=== PATIENT | male | born 1985 | race Asian ===

== ENCOUNTER → 2018-11-18 14:30 | Outpatient (CLI) | payer OTHER, SELFPAY ==
--- NOTE | 2018-11-18 | DI.ECHO.S_ITS ---
[facility]+ [facility] +---------+ : : [address] : [address] : : : : [id number] : : : : Phone: [phone]---------+ Echocardiogram Report + + :Name: JOSUÉ WHITTINGTON Study Date: 11/18/2018 Height: 66 in : :[facility] Exam Location: [facility] Weight: 200 lb : : Gender: Male BSA: 2.0 m2 : :: 1985 Age: 33 yrs BP: 145/100 mmHg: :Reason For Study: Hypertension : : Performed By: Jackelyn Page : :Referring: KIMBERLY GARZA : + + Interpretation Summary Left ventricular systolic function is normal without focal wall motion abnormalities with the ejection fraction visually estimated to be 60-65%. Left ventricular wall thickness is at the upper limits of normal but diastolic parameters suggest probable normal left ventricular diastolic function and normal filling pressures. The right ventricle is normal in size and function. Pulmonary artery pressures cannot be estimated because of the lack of a measurable TR jet velocity but the IVC suggests a CVP of around 3 mmHg. Both atria are normal in size. There is no significant valvular heart disease. The patient was in sinus bradycardia with heart rates between 52-58 bpm during the exam. Procedure: A two-dimensional transthoracic echocardiogram with color flow and Doppler was performed. The study quality was technically adequate. There is no prior echocardiogram noted for this patient. The patient was in sinus bradycardia with heart rates between 52-58 bpm during the exam. Left Ventricle: The left ventricle is normal in size. Left ventricular wall thickness is at the upper limits of normal. Left ventricular systolic function is normal without focal wall motion abnormalities. The ejection fraction is estimated to be 60-65%. Diastolic parameters suggest probable normal left ventricular diastolic function and normal filling pressures. Right Ventricle: The right ventricle is normal in size and function. Atria: Both atria are normal in size. There is no Doppler evidence for an interatrial shunt. Mitral Valve: The mitral valve is normal in structure and function. There is trace mitral regurgitation. Aortic Valve: The aortic valve is trileaflet. The aortic valve opens well. No aortic regurgitation is present. Tricuspid Valve: The tricuspid valve is normal in structure and function. There is a trace or physiologic amount of tricuspid regurgitation. Pulmonary artery pressures cannot be estimated because of the lack of a measurable TR jet velocity but the IVC suggests a CVP of around 3 mmHg. Pulmonic Valve: The pulmonic valve is not well visualized. There is trace pulmonic regurgitation. There is no significant valvular heart disease. Great Vessels: The aortic root is normal size. The ascending aorta is normal in size. The pulmonary artery is not well visualized, but is probably normal size. The IVC is of normal diameter and collapses greater than 50% with a sniff. This suggests a low right atrial pressure of 3 mm Hg. Pericardium/ Pleura There is no pericardial effusion. There is no pleural effusion. MMode/2D Measurements & Calculations LVIDd: 4.8 cm Ao root diam: 3.1 cm LVIDs: 3.0 cm asc Aorta Diam: 2.7 cm FS: 37.0 % EPSS: 0.40 cm IVSd: 1.0 cm LVPWd: 1.1 cm LV winkler. diameter/BSA (cm/m^2): 2.4 LV sys. diameter/BSA (cm/m^2): 1.5 LA A2 area: 18.9 cm2 RA long axis: 5.0 cm LA A4 area: 24.3 cm2 RA area: 16.8 cm2 LA length (vol): 6.0 cm RA vol: 48.0 ml LA vol: 65.0 ml RA : 24.0 ml/m2 LA vol index: 32.5 ml/m2 RVD1 (basal): 3.9 cm TAPSE: 2.3 cm Doppler Measurements & Calculations Ao V2 max: 137.7 cm/sec LVOT Max Eliot: 111.6 cm/sec Ao V2 mean: 92.6 cm/sec LV V1 max P.0 mmHg Ao max P.6 mmHg LV V1 VTI: 24.0 cm Ao mean P.9 mmHg sev ratio: 0.93 Ao V2 VTI: 25.7 cm MV E max eliot: 78.0 cm/sec PA V2 max: 93.7 cm/sec MV A max eliot: 46.3 cm/sec PA V2 mean: 62.3 cm/sec MV E/A: 1.7 PA mean P.8 mmHg Med Peak E' Eliot: 7.4 cm/sec PA Accel Time: 0.13 sec E/E' med: 10.6 Lat Peak E' Eliot: 11.7 cm/sec E/E' lat: 6.7 E/e' average: 8.6 MV dec time: 0.21 sec MV P1/2t: 63.0 msec MV P1/2t max eliot: 78.9 cm/sec MVA(P1/2t): 3.5 cm2 Reading Physician:DEJA
== END ==
PROVIDERS: PCP Family Medicine; Visit Provider Family Medicine
DX: I10 Essential (primary) hypertension (principal); R00.1 Bradycardia, unspecified
CPT/HCPCS: 93306